=== PATIENT | male | born 1965 | race Caucasian/White ===

== ENCOUNTER 2016-09-17 17:25 | Emergency (ER) | payer MEDICAID ==
[~2016-09-17] VITALS: Ht 188 cm; Wt 154.2 kg
[~2016-09-17 17:25] MED LIST: HYDR-4100 PO; IBUP-1017 PO; NOR10 PO
[2016-09-17 17:30] VITALS: BP_SYST 146
[2016-09-17 18:43] LABS: BASOPHILS # (AUTO) 0.1 K/uL (0.0-0.2); BASOPHILS % (AUTO) 1.1 % (0.0-2.0); EOSINOPHILS % (AUTO) 0.1 % (0.0-4.0); HEMATOCRIT 44.9 % (36-54); HEMOGLOBIN 14.8 g/dL (14.0-18.0); LYMPHOCYTES # (AUTO) 0.8 K/uL (1.0-5.5); LYMPHOCYTES % (AUTO) 7.9 % (20.5-51.5); MEAN CORPUSCULAR HEMOGLOBIN 29 pg (27-31); MEAN CORPUSCULAR HGB CONC 33 % (32-36); MEAN CORPUSCULAR VOLUME 86 fL (79.0-98.0); MONOCYTES # (AUTO) 0.2 K/uL (0.0-1.0); MONOCYTES % (AUTO) 2.2 % (1.7-9.3); NEUTROPHILS # (AUTO) 8.6 K/uL (1.8-7.7); NEUTROPHILS % (AUTO) 88.7 % (40.0-70.0); PLATELET COUNT (AUTO) 323 K/uL (130-430); RED CELL DISTRIBUTION WIDTH 12.6 % (9.0-15.0); WHITE BLOOD COUNT (AUTO) 9.7 K/uL (4.8-10.8)
[2016-09-17] MEDS ORDERED: MORPHINE SULFATE 10 MG/ML VIAL IVP ONE (18:45)
[2016-09-17] MEDS ORDERED: ONDANSETRON HCL 4 MG/2 ML VIAL IVP ONE (18:45)
[2016-09-17] MEDS ORDERED: ASPIRIN 325 MG TABLET PO ONE (18:45)
[2016-09-17 18:48] LABS: CALCIUM 9.4 mg/dL (8.4-11.0); CREATININE 0.87 mg/dL (0.55-1.30)
[2016-09-17 18:50] LABS: POTASSIUM 2.9 mmol/L (3.5-5.1)
[2016-09-17 18:56] LABS: PROTHROMBIN TIME 11.1 SECS (9.5-12.5)
[2016-09-17] MEDS ORDERED: POTASSIUM CHLORIDE 20 MEQ TAB.PRT.SR PO ONE (19:00)
[2016-09-17] MEDS ORDERED: IBUP-1480 PO (19:11)
[2016-09-17] MEDS ORDERED: OXYC-133 PO (19:11)
[2016-09-17] MEDS ORDERED: MAG HYDROX/AL HYDROX/SIMETH 30 ML, BELLADONNA ALKALOIDS/PHENOBARB 10 ML, LIDOCAINE VISC... PO ONE ×3 (19:45)
[2016-09-17 19:48] LABS: ALBUMIN 4.4 g/dL (3.4-4.8); TOTAL BILIRUBIN 0.9 mg/dL (0.0-1.0); TOTAL PROTEIN, SERUM 7.5 g/dL (6.4-8.3)
[2016-09-17] MEDS ORDERED: ONDANSETRON HCL 4 MG/2 ML VIAL IM ONE (20:30)
[2016-09-17 20:40] VITALS: BP_SYST 152
== END 2016-09-17 20:40 | disposition home or self-care (01) ==
LOC: SED 17:25
DX: R07.9 Chest pain, unspecified (principal); R11.10 Vomiting, unspecified; R42 Dizziness and giddiness; E11.9 Type 2 diabetes mellitus without complications; I10 Essential (primary) hypertension; M48.06 Spinal stenosis, lumbar region; F17.210 Nicotine dependence, cigarettes, uncomplicated; Z71.6 Tobacco abuse counseling
CPT/HCPCS: 36415; 71010; 80053; 83880; 84484; 85025; 85610; 85730; 93005; 96372; 96374; 96375; 99285; J2001; J2270; J2405

== ENCOUNTER 2018-08-03 11:58 | Emergency (ER) | payer MEDICAID ==
[~2018-08-03] VITALS: Ht 188 cm; Wt 145.1 kg
[~2018-08-03 11:58] MED LIST changes: -HYDR-4100 PO; -IBUP-1017 PO; +IBUP-1971 PO; -NOR10 PO; +OXYC-133 PO
--- NOTE | 2018-08-03 12:30 | NUR ---
Patient to ER bed 05 to gown for evaluation. Side rails up.
[2018-08-03 12:33] VITALS: BP_SYST 159
--- NOTE | 2018-08-03 12:35 | NUR ---
Pt brought by self,ambulatory with crutches, pt presents to ER with bilateral hip pain, states Hx of hip arthritis and he will have hip surgery in the future, pt states he is falling due to pain, pt respirations even and unlabored, pt denies chest pain skin pink and wam ,cap refill <3.
--- NOTE | 2018-08-03 12:40 | NUR ---
Dr Bustos at bedside examining patient
--- NOTE | 2018-08-03 13:00 | NUR ---
Pt sitting in the bed, respirations even and unlabored
[2018-08-03] MEDS ORDERED: HYDROcodone/ACETAMIN 7.5-325 MG TAB PO ONE (13:30)
[2018-08-03] MEDS ORDERED: KETOROLAC TROMETHAMINE 60 MG/2 ML VIAL IM ONE (13:30)
--- NOTE | 2018-08-03 14:13 | NUR ---
Patient given written and verbal discharge instructions and verbalizes understanding. ER MD discussed with patient the results and treatment provided. Patient in stable condition. ID arm band removed. Rx of Ultram given. Patient educated on pain management and to follow up with PMD. Pain Scale 2/10. Opportunity for questions provided and answered. Medication side effect fact sheet provided.
[2018-08-03 14:52] VITALS: BP_SYST 143
== END 2018-08-03 14:52 | disposition home or self-care (01) ==
LOC: SED 11:58
DX: M16.0 Bilateral primary osteoarthritis of hip (principal); E11.9 Type 2 diabetes mellitus without complications; I10 Essential (primary) hypertension; Z79.899 Other long term (current) drug therapy
CPT/HCPCS: 96372; 99283; J1885